=== PATIENT | female | born 1975 | race Caucasian/White ===

== ENCOUNTER 2021-04-08 06:37 | Day surgery (SDC) | payer OTHER, SELFPAY ==
[~2021-04-08] VITALS: Ht 154.9 cm; Wt 108.9 kg
[2021-04-08] MEDS ORDERED: MEPERIDINE HCL/PF 25 MG/ML DISP.SYRIN IVP PRN (08:30)
[2021-04-08] MEDS ORDERED: fentaNYL CITRATE/PF 100 MCG/2 ML AMP IVP PRN (08:30)
[2021-04-08] MEDS ORDERED: LR 1,000 ML IV SCH (08:30)
[2021-04-08] MEDS ORDERED: CEFAZOLIN SOD 2 GM in D5W 50 ML IV ONE (08:45)
[2021-04-08] MEDS ORDERED: MEPERIDINE 100 MG INJ. 100 MG/ML VIAL IM ONE (08:51)
[2021-04-08] MEDS ORDERED: SEVOFLURANE 15 MIN GAS INH ONE (08:51)
[2021-04-08] MEDS ORDERED: NS IRRIG SOLN 1000 ML IR ONE (08:51)
[2021-04-08] MEDS ORDERED: SUCCINYLCHOLINE CHLORIDE 20 MG/ML(QUELICIN) IVP ONE (08:51)
[2021-04-08] MEDS ORDERED: METOCLOPRAMIDE HCL 10 MG/2 ML VIAL IVP ONE (08:51)
[2021-04-08] MEDS ORDERED: DEXAMETHASONE SOD PHOSPHATE 4 MG/ML VIAL IVP ONE (08:51)
[2021-04-08] MEDS ORDERED: PROPOFOL 200MG/ 20ML VIAL (DIPRIVAN) IV ONE (08:51)
[2021-04-08] MEDS ORDERED: fentaNYL CITRATE/PF 100 MCG/2 ML AMP IVP ONE (08:51)
[2021-04-08] MEDS ORDERED: LR 1,000 ML IV.SOLN IV ONE (08:51)
[2021-04-08] MEDS ORDERED: LIDOCAINE/EPI 1% 1:100000 20 ML VIAL INJ ONE (08:51)
[2021-04-08] MEDS ORDERED: CLINDAMYCIN PHOSPHATE 600 mg/50mL D5W IV ONE (08:51)
[2021-04-08] MEDS ORDERED: ROCURONIUM BROMIDE 10 MG/ML (ZEMURON) IV ONE (08:51)
[2021-04-08] MEDS ORDERED: ONDANSETRON HCL 4 MG/2 ML VIAL IVP ONE (08:51)
[2021-04-08] MEDS ORDERED: LEVOFLOXACIN IN DEXTROSE 5 % 100 ML IV ONE (09:00)
[2021-04-08] MEDS ORDERED: CLINDAMYCIN PHOS 600 MG/ D5W 50 ML PREMIX IV ONE (09:00)
[2021-04-08] MEDS ORDERED: ONDANSETRON 4 MG ODT TAB PO PRN (12:15)
[2021-04-08] MEDS ORDERED: ACETAMINOPHEN 500 MG TABLET PO PRN (12:15)
[2021-04-08] MEDS ORDERED: HYDROcodone/ACETAMIN 5-325 MG TAB (NORCO/ VICODIN) PO PRN (12:15)
[2021-04-08] MEDS ORDERED: ONDANSETRON HCL 4 MG/2 ML VIAL IVP PRN (12:15)
[2021-04-08] MEDS: HYDROcodone/ACETAMIN 5-325 MG TAB (NORCO/ VICODIN) ONE (13:50)
[2021-04-08 13:58] VITALS: BP_SYST 126
== END 2021-04-08 14:35 | disposition home or self-care (01) ==
LOC: SDS 06:37 → SMU 06:39 → SDS 14:35
PROVIDERS: ATTEND Otolaryngology
DX: E04.1 Nontoxic single thyroid nodule (principal); E78.5 Hyperlipidemia, unspecified; E66.9 Obesity, unspecified; Z20.822 Contact with and (suspected) exposure to COVID-19; Z79.899 Other long term (current) drug therapy
CPT/HCPCS: 60220; 88307; C1782; J0330; J1100; J1956; J2175; J2405; J2704; J2765; J3010; J3490; J7120; U0003; J0690; J7060

== ENCOUNTER 2021-05-13 06:34 | Day surgery (SDC) | payer OTHER, SELFPAY ==
[~2021-05-13] VITALS: Ht 154.9 cm; Wt 108.0 kg
[2021-05-13] MEDS ORDERED: CLINDAMYCIN PHOS 600 MG/ D5W 50 ML PREMIX IV ONE (08:30)
[2021-05-13] MEDS ORDERED: METOCLOPRAMIDE HCL 10 MG/2 ML VIAL IVP ONE (08:39)
[2021-05-13] MEDS ORDERED: PROPOFOL 200MG/ 20ML VIAL (DIPRIVAN) IV ONE (08:39)
[2021-05-13] MEDS ORDERED: LR 1,000 ML IV.SOLN IV ONE (08:39)
[2021-05-13] MEDS ORDERED: MIDAZOLAM HCL 5 MG/5 ML VIAL IVP ONE (08:39)
[2021-05-13] MEDS ORDERED: PHENYLEPHRINE HCL 10 MG/ML VIAL (NEOSYNEPHRINE) IV ONE (08:39)
[2021-05-13] MEDS ORDERED: SUCCINYLCHOLINE CHLORIDE 20 MG/ML(QUELICIN) IVP ONE (08:39)
[2021-05-13] MEDS ORDERED: SEVOFLURANE 15 MIN GAS INH ONE (08:39)
[2021-05-13] MEDS ORDERED: fentaNYL CITRATE/PF 100 MCG/2 ML AMP IVP ONE (08:39)
[2021-05-13] MEDS ORDERED: LIDOCAINE/EPI 1% 1:100000 20 ML VIAL INJ ONE (08:39)
[2021-05-13] MEDS ORDERED: GLYCOPYRROLATE 0.2 MG/ML VIAL IJ ONE (08:39)
[2021-05-13] MEDS ORDERED: NS IRRIG SOLN 1000 ML IR ONE (08:39)
[2021-05-13] MEDS ORDERED: ONDANSETRON HCL 4 MG/2 ML VIAL IVP ONE (08:39)
[2021-05-13] MEDS ORDERED: LIDOCAINE 1% 10 MG/ML, 20 ML MDV INJ ONE (08:39)
[2021-05-13] MEDS ORDERED: LIP20 PO (08:48)
[2021-05-13] MEDS ORDERED: VITD2000 PO (08:49)
[2021-05-13] MEDS ORDERED: LR 1,000 ML IV SCH (09:30)
[2021-05-13] MEDS ORDERED: KETOROLAC TROMETHAMINE 30 MG VIAL IVP PRN ×2 (09:30)
[2021-05-13] MEDS ORDERED: HYDROmorphone 1 MG/ML INJ. CARTRIDGE IVP PRN (09:30)
[2021-05-13] MEDS ORDERED: HYDROmorphone 2 MG/ML VIAL IVP PRN (09:30)
[2021-05-13] MEDS ORDERED: ONDANSETRON HCL 4 MG/2 ML VIAL IVP PRN (09:30)
[2021-05-13] MEDS ORDERED: HYDROmorphone 2 MG/ML VIAL ONE (12:51)
[2021-05-13 13:10] LABS: ALBUMIN 2.8 g/dL (3.4-4.8); CALCIUM 8.6 mg/dL (8.4-11.0)
[2021-05-13 16:41] VITALS: BP_SYST 122
== END 2021-05-13 16:45 | disposition home or self-care (01) ==
LOC: SDS 06:34 → SMU 06:36 → SDS 16:45
PROVIDERS: ATTEND Otolaryngology
DX: C73 Malignant neoplasm of thyroid gland (principal); E66.01 Morbid (severe) obesity due to excess calories; Z88.0 Allergy status to penicillin; Z20.822 Contact with and (suspected) exposure to COVID-19
CPT/HCPCS: 36415; 60240; 82040; 82310; 83970; 87081; 88307; C1782; J0330; J1170; J2001; J2250; J2370; J2405; J2704; J2765; J3010; J3490 ×2; J7120; U0003